=== PATIENT | male | born 1975 | race Caucasian/White ===

== ENCOUNTER 2020-04-28 19:54 | Emergency (ER) | payer BC ==
[~2020-04-28] VITALS: Ht 175.3 cm; Wt 100.0 kg
[~2020-04-28 19:54] MED LIST: BLOOD PRESSURE MED; CIPRO 500MG TA500 MG PO; PHENERGAN 25 TA25 MG PO
[2020-04-28 19:59] VITALS: TEMP 98.6
[2020-04-28] MEDS ORDERED: DESYREL 50MG50 MG PO (20:32)
[2020-04-28] MEDS ORDERED: AMBIEN 5MG TABLE5 MG PO (20:32)
[2020-04-28] MEDS ORDERED: HYZAAR 25 MG-101 TAB PO (20:32)
[2020-04-28] MEDS ORDERED: PRILOTC (20:33)
[2020-04-28 21:25] VITALS: BP 145/87; PULSE 80
== END 2020-04-28 21:25 | disposition home or self-care (01) ==
LOC: COL.ER 19:54
DX: S62.306A Unspecified fracture of fifth metacarpal bone, right hand, initial encounter for closed fracture (principal); W22.8XXA Striking against or struck by other objects, initial encounter; K21.9 Gastro-esophageal reflux disease without esophagitis; G47.00 Insomnia, unspecified; I10 Essential (primary) hypertension; Z87.891 Personal history of nicotine dependence
CPT/HCPCS: Q4021